=== PATIENT | female | born 1975 | race Two or more races ===

== ENCOUNTER 2019-04-09 22:50 | Emergency (ER) | payer BC, MEDICAID ==
[~2019-04-09] VITALS: Ht 160 cm; Wt 72.6 kg
--- NOTE | 2019-04-09 23:20 | NUR ---
BIB FAMILY FOR CHEST PAIN; PT AAOX4, PT AMBULATORY, PT TO BED 15, PENDING MD ROGEL
[2019-04-09] MEDS ORDERED: IBUPROFEN 600 MG TABLET PO ONE (23:52)
[2019-04-09] MEDS ORDERED: ACETAMINOPHEN ES 500 MG TABLET ONE (23:52)
[2019-04-09 23:55] LABS: BASOPHILS # (AUTO) 0.1 /CMM (0.0-0.2); BASOPHILS % (AUTO) 0.5 % (0.0-2.0); EOSINOPHILS % (AUTO) 1.2 % (0.0-6.0); HEMATOCRIT 39 % (33-45); HEMOGLOBIN 13.4 g/dL (11.5-14.8); LYMPHOCYTES # (AUTO) 4.7 /CMM (0.8-4.8); LYMPHOCYTES % (AUTO) 45.3 % (20.0-44.0); MEAN CORPUSCULAR HGB CONC 34 g/dl (31.0-36.0); MEAN CORPUSCULAR VOLUME 86 fL (82-100); MONOCYTES # (AUTO) 0.8 /CMM (0.1-1.30); MONOCYTES % (AUTO) 7.8 % (2.0-12.0); NEUTROPHILS # (AUTO) 4.7 /CMM (1.8-8.9); NEUTROPHILS % (AUTO) 45.2 % (43.0-81.0); PLATELET COUNT (AUTO) 252 /CMM (150-450); RED BLOOD CELL COUNT(AUTO) 4.56 MIL/uL (4.0-5.2); WHITE BLOOD COUNT (AUTO) 10.4 K/uL (4.3-11.0)
--- NOTE | 2019-04-09 23:58 | NUR ---
PT SIGNED PREG WAIVER FOR XRAY; PT NOT ABLE TO GIVE URINE SAMPLE AT THIS TIME
[2019-04-10] MEDS ORDERED: IBUPROFEN 600 MG TABLET PO ONE
[2019-04-10] MEDS ORDERED: ACETAMINOPHEN ES 500 MG TABLET PO ONE
[2019-04-10 00:12] LABS: CALCIUM, SERUM 8.8 mg/dL (8.5-10.1); CARBON DIOXIDE 26 mmol/L (21-32); CHLORIDE 104 mmol/L (98-107); CREATININE 0.7 mg/dL (0.6-1.3); GLUCOSE 109 mg/dL (74-106); SODIUM SERUM 139 mmol/L (136-145); UREA NITROGEN, BLOOD 15 mg/dL (7-18)
--- NOTE | 2019-04-10 00:51 | NUR ---
Patient discharged to home in stable condition. Written and verbal after care instructions given. Patient verbalizes understanding of instruction. IV removed. Catheter intact and site benign. Pressure and 4x4 applied to site. No bleeding noted.
[2019-04-10 00:55] VITALS: BP 121/75
== END 2019-04-10 00:56 | disposition home or self-care (01) ==
LOC: ER 22:52
DX: J20.9 Acute bronchitis, unspecified (principal); R07.89 Other chest pain; Z98.890 Other specified postprocedural states
CPT/HCPCS: 36415; 71045-TC; 80048-TC; 84484-TC; 85025-TC

== ENCOUNTER 2023-12-07 15:41 | Inpatient (IN) | payer MEDICAID, OTHER ==
[~2023-12-07] VITALS: Ht 157.5 cm; Wt 53.5 kg
[2023-12-07 16:58] LABS: BASOPHILS % (AUTO) 0.4 % (0.0-2.0); EOSINOPHILS # (AUTO) 0.1 K/uL (0.0-0.7); EOSINOPHILS % (AUTO) 1.2 % (0.0-6.0); HEMATOCRIT 37 % (33-45); HEMOGLOBIN 12.2 g/dL (11.5-14.8); LYMPHOCYTES % (AUTO) 33.4 % (20.0-44.0); MEAN CORPUSCULAR HEMOGLOBIN 27 PG (26.0-33.0); MEAN CORPUSCULAR HGB CONC 33 g/dl (31.0-36.0); MEAN CORPUSCULAR VOLUME 82 fL (82-100); MONOCYTES # (AUTO) 0.6 K/uL (0.1-1.30); MONOCYTES % (AUTO) 6.4 % (2.0-12.0); NEUTROPHILS # (AUTO) 5.3 K/uL (1.8-8.9); NEUTROPHILS % (AUTO) 58.6 % (43.0-81.0); PLATELET COUNT (AUTO) 376 K/uL (150-450); RED BLOOD CELL COUNT(AUTO) 4.49 MIL/uL (4.0-5.2); RED CELL DISTRIBUTION WIDTH 13.6 % (11.5-15.0)
[2023-12-07 17:09] LABS: APPEARANCE,URINE SLIGHTLY CLOUDY (CLEAR); BILIRUBIN,URINE NEGATIVE (NEGATIVE); BLOOD, URINE NEGATIVE Ery/uL (NEGATIVE); COLOR,URINE YELLOW (YELLOW); KETONES,URINE NEGATIVE (NEGATIVE); LEUKOCYTE ESTERASE ,URINE 1+ (NEGATIVE); NITRITE, URINE POSITIVE (NEGATIVE); PROTEIN,URINE NEGATIVE (NEGATIVE); UGLUCOSE NEGATIVE (NEGATIVE); UROBILINOGEN,URINE 0.2 EU/dL (0.2)
[2023-12-07 17:15] LABS: PREGNANCY TEST URINE QUAL NEGATIVE (NEGATIVE)
[2023-12-07 17:18] LABS: ADD URINE CULTURE YES; BACTERIA,URINE 2+ /HPF (None Seen); RBC,URINE 0-2 /HPF (0-2); SQUAMOUS EPITHELIAL CELL,UR 21-50 /HPF (None Seen)
[2023-12-07 17:26] LABS: ALBUMIN 3.7 g/dL (3.4-5.0); BILIRUBIN,DIRECT 0.1 mg/dL (0.0-0.2); BILIRUBIN,TOTAL 0.3 mg/dL (0.2-1.0); CALCIUM, SERUM 9.4 mg/dL (8.5-10.1); CREATININE 0.5 mg/dL (0.6-1.3); POTASSIUM 3.6 mmol/L (3.5-5.1); TOTAL PROTEIN, SERUM 7.4 g/dL (6.4-8.2)
[2023-12-07] MEDS ORDERED: ERGO500093 PO (18:44)
[2023-12-07] MEDS ORDERED: DIATR MEGLU/DIATRIZOATE SODIUM 30 ML BOTTLE (GASTROGRAPHIN) ONE (19:08)
[2023-12-07] MEDS ORDERED: CEFTRIAXONE 1GM BAG (ER ONLY) 50 ML IV ONE (19:34)
[2023-12-07] MEDS: CEFTRIAXONE 1GM BAG (ER ONLY) 1 GM/50 ML PIGGYBACK IV ONE (19:38)
[2023-12-07] MEDS: LORAZEPAM INJ 2 MG/ML VIAL IV ONE (19:51)
[2023-12-07] MEDS ORDERED: DIAZEPAM 5 MG TABLET ONE (19:56)
[2023-12-07] MEDS: DIAZEPAM 5 MG TABLET PO ONE (19:59)
[2023-12-07] MEDS ORDERED: IV NS 0.9% 250 ML IV ONE ×2 (20:56→22:32)
[2023-12-07] MEDS ORDERED: IOHEXOL-300 100 ML VIAL IV ONE ×2 (20:56→22:32)
[2023-12-07] MEDS ORDERED: CT SWABBABLE VALVE TRANS SET 1 EA INFUS.SET MC ONE ×2 (20:56→22:32)
[2023-12-07 23:30] VITALS: BP 110/75; TEMP 98; O2SAT 98
[2023-12-07] MEDS ORDERED: HYDROMORPHONE 1 MG/1 ML DISP.SYRIN IV PRN (23:30)
[2023-12-07] MEDS ORDERED: ONDANSETRON HCL/PF 4 MG/2 ML VIAL IV PRN (23:30)
[2023-12-07] MEDS ORDERED: ZOLPIDEM TARTRATE 5 MG TABLET PO PRN (23:30)
[2023-12-08] MEDS: IV D5/ 0.9% NACL 1,000 ML IV PRN
[2023-12-08 07:00] LABS: BASOPHILS % (AUTO) 0.3 % (0.0-2.0); EOSINOPHILS # (AUTO) 0.1 K/uL (0.0-0.7); EOSINOPHILS % (AUTO) 1.5 % (0.0-6.0); HEMATOCRIT 34 % (33-45); HEMOGLOBIN 11.2 g/dL (11.5-14.8); LYMPHOCYTES # (AUTO) 3.5 K/uL (0.8-4.8); LYMPHOCYTES % (AUTO) 43.3 % (20.0-44.0); MEAN CORPUSCULAR HEMOGLOBIN 27 PG (26.0-33.0); MEAN CORPUSCULAR HGB CONC 33 g/dl (31.0-36.0); MEAN CORPUSCULAR VOLUME 81 fL (82-100); MONOCYTES # (AUTO) 0.6 K/uL (0.1-1.30); MONOCYTES % (AUTO) 7.8 % (2.0-12.0); NEUTROPHILS # (AUTO) 3.8 K/uL (1.8-8.9); NEUTROPHILS % (AUTO) 47.1 % (43.0-81.0); PLATELET COUNT (AUTO) 348 K/uL (150-450); RED BLOOD CELL COUNT(AUTO) 4.13 MIL/uL (4.0-5.2); RED CELL DISTRIBUTION WIDTH 13.4 % (11.5-15.0); WHITE BLOOD COUNT (AUTO) 8.1 K/uL (4.3-11.0)
[2023-12-08 07:26] LABS: CREATININE 0.5 mg/dL (0.6-1.3); MAGNESIUM 2.1 mg/dL (1.8-2.4); POTASSIUM 3.9 mmol/L (3.5-5.1)
[2023-12-08] MEDS: ALPRAZOLAM 0.25 MG TABLET PO PRN (10:04)
[2023-12-08 10:19] VITALS: BP 107/66; TEMP 97.6; O2SAT 100
[2023-12-08] MEDS ORDERED: CT SWABBABLE VALVE TRANS SET 1 EA INFUS.SET MC ONE (10:43)
[2023-12-08] MEDS ORDERED: IOHEXOL-300 100 ML VIAL IV ONE (10:43)
[2023-12-08] MEDS ORDERED: IV NS 0.9% 250 ML IV ONE (10:43)
[2023-12-08] MEDS: CEFTRIAXONE 1 G in IV D5W 50 ML IV SCH (18:29)
[2023-12-08 19:09] LABS: THYROID STIMULATING HORMONE 3.409 uIU/mL (0.358-3.74)
[2023-12-08 20:00] VITALS: BP 120/74; TEMP 97.9; O2SAT 100
[2023-12-08] MEDS: ACETAMINOPHEN 325 MG TABLET PO PRN (22:45)
[2023-12-09 07:17] LABS: BASOPHILS % (AUTO) 0.6 % (0.0-2.0); EOSINOPHILS # (AUTO) 0.1 K/uL (0.0-0.7); HEMATOCRIT 31 % (33-45); HEMOGLOBIN 10.5 g/dL (11.5-14.8); LYMPHOCYTES # (AUTO) 2.9 K/uL (0.8-4.8); LYMPHOCYTES % (AUTO) 45.6 % (20.0-44.0); MEAN CORPUSCULAR HEMOGLOBIN 27 PG (26.0-33.0); MEAN CORPUSCULAR HGB CONC 34 g/dl (31.0-36.0); MEAN CORPUSCULAR VOLUME 81 fL (82-100); MONOCYTES # (AUTO) 0.5 K/uL (0.1-1.30); MONOCYTES % (AUTO) 7.4 % (2.0-12.0); NEUTROPHILS # (AUTO) 2.9 K/uL (1.8-8.9); NEUTROPHILS % (AUTO) 44.4 % (43.0-81.0); PLATELET COUNT (AUTO) 302 K/uL (150-450); RED BLOOD CELL COUNT(AUTO) 3.86 MIL/uL (4.0-5.2); RED CELL DISTRIBUTION WIDTH 13.5 % (11.5-15.0); WHITE BLOOD COUNT (AUTO) 6.5 K/uL (4.3-11.0)
[2023-12-09 07:55] LABS: INR 1.05 (0.91-1.10); PARTIAL THROMBOPLASTIN TIME 29.1 SEC (24.3-34.3); PROTHROMBIN TIME 11.1 SECS (9.2-11.1)
[2023-12-09] MEDS: FERROUS SULFATE (325 MG) 325 MG/TAB TABLET PO SCH (09:42)
[2023-12-09 11:08] LABS: IMMUNOGLOBULIN A, SERUM 164 mg/dL (87-352); IMMUNOGLOBULIN G, SERUM 661 mg/dL (586-1602); IMMUNOGLOBULIN M, SERUM 99 mg/dL (26-217)
[2023-12-09 12:11] LABS: FREE KAPPA LT CHAINS SERUM 10.8 mg/L (3.3-19.4); FREE LAMBDA LT CHAIN SERUM 8.5 mg/L (5.7-26.3); KAPPA/LAMBDA RATIO SERUM 1.27 (0.26-1.65)
[2023-12-09 12:37] LABS: OCCULT BLOOD STOOL NEGATIVE (NEGATIVE)
[2023-12-09] MEDS: PEG 3350/NA SULF,BICARB,CL/KCL 4,000 ML BOTTLE PO ONE (13:37)
[2023-12-09 15:17] VITALS: BP 107/73; TEMP 98.1; O2SAT 100
[2023-12-09 16:00] VITALS: BP 93/65; TEMP 98.1; O2SAT 100
[2023-12-09 20:00] VITALS: BP 117/69; TEMP 98.4; O2SAT 100
[2023-12-10 01:11] LABS: CANCER AG, 125 11.3 U/mL (0.0-38.1); FOLIC ACID 13.4 ng/mL (>3.0)
[2023-12-10 03:07] LABS: HEPATITIS B SURFACE AB Reactive (.)
[2023-12-10 06:11] LABS: *SPE A/G RATIO 1.1 (0.7-1.7); *SPE ALBUMIN 3.1 g/dL (2.9-4.4); *SPE ALPHA-1-GLOBULIN 0.3 g/dL (0.0-0.4); *SPE ALPHA-2-GLOBULIN 0.9 g/dL (0.4-1.0); *SPE GLOBULIN, TOTAL 2.9 g/dL (2.2-3.9); *SPE M-SPIKE Not Observed g/dL (Not Observed); *SPEGAMMA GLOBULIN 0.7 g/dL (0.4-1.8)
[2023-12-10 07:19] LABS: BASOPHILS % (AUTO) 0.5 % (0.0-2.0); EOSINOPHILS # (AUTO) 0.1 K/uL (0.0-0.7); EOSINOPHILS % (AUTO) 1.7 % (0.0-6.0); HEMATOCRIT 30 % (33-45); HEMOGLOBIN 10.1 g/dL (11.5-14.8); LYMPHOCYTES # (AUTO) 2.9 K/uL (0.8-4.8); LYMPHOCYTES % (AUTO) 52.2 % (20.0-44.0); MEAN CORPUSCULAR HEMOGLOBIN 27 PG (26.0-33.0); MEAN CORPUSCULAR HGB CONC 34 g/dl (31.0-36.0); MEAN CORPUSCULAR VOLUME 80 fL (82-100); MONOCYTES # (AUTO) 0.4 K/uL (0.1-1.30); MONOCYTES % (AUTO) 7.2 % (2.0-12.0); NEUTROPHILS # (AUTO) 2.1 K/uL (1.8-8.9); NEUTROPHILS % (AUTO) 38.4 % (43.0-81.0); PLATELET COUNT (AUTO) 290 K/uL (150-450); RED BLOOD CELL COUNT(AUTO) 3.68 MIL/uL (4.0-5.2); RED CELL DISTRIBUTION WIDTH 13.3 % (11.5-15.0); WHITE BLOOD COUNT (AUTO) 5.6 K/uL (4.3-11.0)
[2023-12-10 07:40] LABS: CALCIUM, SERUM 8.9 mg/dL (8.5-10.1); CREATININE 0.5 mg/dL (0.6-1.3); POTASSIUM 3.4 mmol/L (3.5-5.1)
[2023-12-10 08:39] VITALS: BP 109/75; TEMP 97.9; O2SAT 98
[2023-12-10] MEDS ORDERED: POTASSIUM CHLORIDE 10 MEQ/50 ML PREMIXED IVPB FOR PERIPHERAL LINE IV ONE (09:00)
[2023-12-10] MEDS: POTASSIUM CL. PREMIX PERIPHER. 50 ML IV SCH (09:19)
[2023-12-10] MEDS: Potassium Chloride 10 MEQ, LIDOCAINE HCL/PF 1% 1 ML in IV D5W 50 ML IV SCH (11:00)
[2023-12-10 12:10] VITALS: BP 105/85; TEMP 98.5; O2SAT 100
== END 2023-12-10 16:00 | disposition home or self-care (01) | DRG 841 ==
LOC: ER 16:04 → TELE 22:42 → MED 23:07
PROVIDERS: ADMIT Internal Medicine; ATTEND Internal Medicine
PROC: 0DBB8ZX Excision of Ileum, Via Natural or Artificial Opening Endoscopic, Diagnostic (ICD-10-PCS; principal; 2023-12-10)
DX: C88.4 Extranodal marginal zone B-cell lymphoma of mucosa-associated lymphoid tissue [MALT-lymphoma] (principal); K56.1 Intussusception; N39.0 Urinary tract infection, site not specified; R59.0 Localized enlarged lymph nodes; Z98.891 History of uterine scar from previous surgery; K63.89 Other specified diseases of intestine; D25.9 Leiomyoma of uterus, unspecified; D50.9 Iron deficiency anemia, unspecified; Z98.84 Bariatric surgery status; Z97.5 Presence of (intrauterine) contraceptive device; K64.8 Other hemorrhoids
CPT/HCPCS: 36415; 71260-TC; 76856-TC; 80048-TC; 80076-TC; 81001; 82272-TC; 82378; 82607-TC; 82728-TC; 82784; 83540-TC; 83615-TC; 83690-TC; 83735-TC; 84155; 84165; 84443-TC; 84703-TC; 85025-TC; 85610-TC; 85730-TC; 86304; 86334; 86706; 86803; 87086-TC; 87340; A4223; G0378; J0696; J2704; J3480; J3490; J7042; J7050; J7060; Q9963; Q9967